=== PATIENT | male | born 1965 | race Caucasian/White ===

== ENCOUNTER 2019-01-29 07:08 | Day surgery (SDC) | payer OTHER ==
[2019-01-22 17:56] VITALS: BMI 26.3
[2019-01-29] MEDS ORDERED: PROPOFOL 20 ML ONE ×2 (08:18)
[2019-01-29] MEDS ORDERED: LIDOCAINE HCL/PF 2% SDV 5ML VIAL ONE (08:18)
[2019-01-29 08:59] VITALS: TEMP 98.2
[2019-01-29 09:38] VITALS: BP 119/81; PULSE 74
--- NOTE | 2019-01-30 17:18 | PATH ---
Surgical Pathology Report Patient Name: FLORES GONSALEZ [facility]. Rec. #: [id number] /Age/Gender: 1965 (Age: 53) / M Account: [id number] Location: [facility] Taken: 01/29/2019 Received: 01/29/2019 Reported: 01/30/2019 Physicians: Gerardo Paula M.D. Specimen(s) Received A: RIGHT COLON POLYP B: DISTAL SIGMOID POLYP Clinical History Rule out colon cancer Postoperative diagnosis: Polyp Final Diagnosis A. RIGHT COLON, POLYP, BIOPSY: HYPERPLASTIC POLYP. B. DISTAL SIGMOID, POLYP, BIOPSY: HYPERPLASTIC POLYP. Electronically Signed Carolyn Mishra M.D. Gross Description A. Received in formalin, labeled "right colon polyp" is a cordon, irregular portion of soft tissue measuring 0.7 cm. in greatest dimension. The specimen is submitted in toto in one cassette. B. Received in formalin, labeled "distal sigmoid polyp" is a cordon, irregular portion of soft tissue measuring 0.4 cm. in greatest dimension. The specimen is submitted in toto in one cassette. /01/29/2019 saudi01/29/2019
== END 2019-01-29 09:40 | disposition home or self-care (01) ==
LOC: FASU-ENDO 07:08
PROVIDERS: ATTEND Internal Medicine Gastroenterology
PROC: 0DBN8ZX Excision of Sigmoid Colon, Via Natural or Artificial Opening Endoscopic, Diagnostic (ICD-10-PCS; 2019-01-29)
PROC: 0DBK8ZX Excision of Ascending Colon, Via Natural or Artificial Opening Endoscopic, Diagnostic (ICD-10-PCS; principal; 2019-01-29 08:28)
DX: Z12.11 Encounter for screening for malignant neoplasm of colon (principal); K63.5 Polyp of colon; Z80.0 Family history of malignant neoplasm of digestive organs
CPT/HCPCS: 88305-TC